=== PATIENT | female | born 2000 | race American Indian/Alaskan Native ===

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

== ENCOUNTER 2019-03-26 03:46 | Emergency (ER) | payer SELFPAY ==
[2019-03-26 04:14] VITALS: BP 112/42
--- NOTE | 2019-03-26 04:26 | Emergency Department Report ---
ED ENT HPI - General Chief complaint: Earache Stated complaint: POSS R EAR INFECTION Time Seen by Provider: 03/26/19 04:04 Source: patient, EMS Mode of arrival: Stretcher Limitations: No Limitations - History of Present Illness Initial comments: Patient is a 18-year-old female presents emergency room with complaints of right ear pain that began 2 days ago. She states that she recently had a URI which self resolved. She denies any drainage of the ear, fever, sore throat. She denies any recent antibiotics. Patient denies any past medical history or allergies to medications. She states her last menstrual cycle was last week. - Related Data Previous Rx's Medication Instructions Recorded Last Taken Type Acetaminophen/Codeine [Tylenol #3] 1 tab PO Q6H PRN #12 tab 02/05/17 Unknown Rx DOXYCYCLINE Hyclate [Vibramycin 100 mg PO Q12HR #20 capsule 02/05/17 Unknown Rx CAP] Ibuprofen [Motrin] 600 mg PO Q8H PRN #15 tablet 02/05/17 Unknown Rx metroNIDAZOLE [Flagyl] 500 mg PO Q12HR #14 tab 02/05/17 Unknown Rx Dicyclomine [Bentyl] 10 mg PO QID PRN #40 capsule 10/18/17 Unknown Rx Ondansetron [Zofran Odt] 4 mg PO TID PRN #15 tab.rapdis 10/18/17 Unknown Rx Amoxicillin [Amoxicillin TAB] 875 mg PO BID 7 Days #14 tablet 03/26/19 Unknown Rx Allergies Allergy/AdvReac Type Severity Reaction Status Date / Time No Known Allergies Allergy Verified 01/29/15 01:21 ED Dental HPI - General Chief complaint: Earache Stated complaint: POSS R EAR INFECTION Time Seen by Provider: 03/26/19 04:04 Source: patient, EMS Mode of arrival: Stretcher Limitations: No Limitations - Related Data Previous Rx's Medication Instructions Recorded Last Taken Type Acetaminophen/Codeine [Tylenol #3] 1 tab PO Q6H PRN #12 tab 02/05/17 Unknown Rx DOXYCYCLINE Hyclate [Vibramycin 100 mg PO Q12HR #20 capsule 02/05/17 Unknown Rx CAP] Ibuprofen [Motrin] 600 mg PO Q8H PRN #15 tablet 02/05/17 Unknown Rx metroNIDAZOLE [Flagyl] 500 mg PO Q12HR #14 tab 09/30/17 Unknown Rx Dicyclomine [Bentyl] 10 mg PO QID PRN #40 capsule 10/18/17 Unknown Rx Ondansetron [Zofran Odt] 4 mg PO TID PRN #15 tab.rapdis 10/18/17 Unknown Rx Amoxicillin [Amoxicillin TAB] 875 mg PO BID 7 Days #14 tablet 03/26/19 Unknown Rx Allergies Allergy/AdvReac Type Severity Reaction Status Date / Time No Known Allergies Allergy Verified 01/29/15 01:21 ED Review of Systems ROS: Stated complaint: POSS R EAR INFECTION Other details as noted in HPI Comment: All other systems reviewed and negative ED Past Medical Hx - Past Medical History Previous Medical History?: No Hx Hypertension: No Hx Diabetes: No Hx Deep Vein Thrombosis: No Hx Renal Disease: No Hx Sickle Cell Disease: No Hx Seizures: No Hx Asthma: No Hx HIV: No - Surgical History Past Surgical History?: Yes Additional Surgical History: x 1 - Social History Smoking Status: Current Every Day Smoker Substance Use Type: None - Medications Home Medications: Home Medications Medication Instructions Recorded Confirmed Last Taken Type Acetaminophen/Codeine [Tylenol #3] 1 tab PO Q6H PRN #12 tab 02/05/17 Unknown Rx DOXYCYCLINE Hyclate [Vibramycin 100 mg PO Q12HR #20 capsule 02/05/17 Unknown Rx CAP] Ibuprofen [Motrin] 600 mg PO Q8H PRN #15 tablet 02/05/17 Unknown Rx metroNIDAZOLE [Flagyl] 500 mg PO Q12HR #14 tab 02/05/17 Unknown Rx Dicyclomine [Bentyl] 10 mg PO QID PRN #40 capsule 10/18/17 Unknown Rx Ondansetron [Zofran Odt] 4 mg PO TID PRN #15 tab.rapdis 10/18/17 Unknown Rx Amoxicillin [Amoxicillin TAB] 875 mg PO BID 7 Days #14 tablet 03/26/19 Unknown Rx ED Physical Exam - General Limitations: No Limitations General appearance: alert, in no apparent distress - Head Head exam: Present: atraumatic, normocephalic - Eye Eye exam: Present: normal appearance - ENT ENT exam: Present: mucous membranes moist, other (left TM and canal are normal, right canal is normal, right TM is erythematous with purulence behind the TM, TMs are intact) - Neurological Exam Neurological exam: Present: alert, oriented X3 - Psychiatric Psychiatric exam: Present: normal affect, normal mood - Skin Skin exam: Present: warm, dry, intact ED Course Vital Signs 03/26/19 03:52 Temperature 98.4 F Pulse Rate 87 Respiratory 18 Rate Blood Pressure 112/42 O2 Sat by Pulse 99 Oximetry ED Medical Decision Making - Medical Decision Making Patient is a 18-year-old female presents emergency room with complaints of right ear pain that began 2 days ago. She states that she recently had a URI which self resolved. She denies any drainage of the ear, fever, sore throat. She denies any recent antibiotics. Patient denies any past medical history or allergies to medications. She states her last menstrual cycle was last week. vitals are normal. on exam: left TM and canal are normal, right canal is normal, right TM is erythematous with purulence behind the TM, TMs are intact. Examin ation consistent with otitis media. Patient given prescription for amoxicillin. advised pt to please take medication as prescribed. May take Tylenol or ibuprofen for any discomfort. Increase your water intake over the next several days. Follow-up with a primary care doctor in 3 days for ear recheck. Return to the emergency room for any new or worsening symptoms. - Differential Diagnosis otitis media, otitis externa, cerumen impaction, otalgia, serous otitis Critical care attestation.: If time is entered above; I have spent that time in minutes in the direct care of this critically ill patient, excluding procedure time. ED Disposition Clinical Impression: Right otitis media Qualifiers: Otitis media type: suppurative Chronicity: acute Recurrence: non-recurrent Spontaneous tympanic membrane rupture: without spontaneous rupture Qualified Code(s): H66.001 - Acute suppurative otitis media without spontaneous rupture of ear drum, right ear Disposition: -01 TO HOME OR SELFCARE Is pt being admited?: No Does the pt Need Aspirin: No Condition: Stable Instructions: Otitis Media (ED) Additional Instructions: Please take medication as prescribed. May take Tylenol or ibuprofen for any discomfort. Increase your water intake over the next several days. Follow-up with a primary care doctor in 3 days for ear recheck. Return to the emergency room for any new or worsening symptoms. Prescriptions: Amoxicillin [Amoxicillin TAB] 875 mg PO BID 7 Days #14 tablet Referrals: [facility] [Provider Group] - 2-3 Days Time of Disposition: :24 Print Language: TURKISH
== END 2019-03-26 04:50 | disposition home or self-care (01) ==
LOC: ED 03:46
DX: H66.91 Otitis media, unspecified, right ear (principal); Z98.890 Other specified postprocedural states; F17.200 Nicotine dependence, unspecified, uncomplicated; Z79.2 Long term (current) use of antibiotics; Z79.1 Long term (current) use of non-steroidal anti-inflammatories (NSAID); Z79.899 Other long term (current) drug therapy

== ENCOUNTER 2019-07-06 08:47 | Emergency (ER) | payer SELFPAY ==
[2019-07-06 09:20] VITALS: BP 117/63
--- NOTE | 2019-07-06 09:24 | Emergency Department Report ---
Chief Complaint: Nausea/Vomiting/Diarrhea Stated Complaint: intermittent vomiting times 3 day. - HPI History of Present Illness: 19 y/o female comes in for intermittent vomiting times 3 days. She is able to drink fluids. - Exam Vital Signs: Vital Signs 07/06/19 09:13 Temperature 98.0 F Pulse Rate 83 Respiratory 20 Rate Blood Pressure 117/63 O2 Sat by Pulse 100 Oximetry Physical Exam: Axo times 3 NAD non toxic oral moist ambulatory without diff MSE screening note: Focused history and physical exam performed. Due to findings the following was ordered: 19 y/o female comes in for intermittent vomiting times 3 days. She is able to drink fluids. Recommend to continue with fluids. Check a home test. ED Disposition for MSE Disposition: Z- MED SCREENING EXAM-LEFT Is pt being admited?: No Does the pt Need Aspirin: No Condition: Stable Additional Instructions: Recommend to continue with fluids. Check a home test. Referrals: PRIMARY CARE, [Primary Care Provider] - 3-5 Days
== END 2019-07-06 09:33 | disposition left against medical advice (07) ==
LOC: ED 08:47
DX: R11.10 Vomiting, unspecified (principal); Z53.21 Procedure and treatment not carried out due to patient leaving prior to being seen by health care provider